=== PATIENT | male | born 1980 | race Caucasian/White ===

== ENCOUNTER 2023-07-30 16:12 | Emergency (ER) | payer OTHER ==
[2023-07-30 16:25] VITALS: BP 137/89; PULSE 77; RESP 18; TEMP 98.4; BMI 32.5
[2023-07-30] MEDS ORDERED: LIDOCAINE 5% TOPICAL PATCH TP ONE (16:30)
[2023-07-30] MEDS ORDERED: KETOROLAC TROMETHAMINE 30 MG/1 ML VIAL IM ONE (16:30)
[2023-07-30] MEDS ORDERED: LIDOCAINE 5% TOPICAL PATCH ONE (17:40)
[2023-07-30] MEDS ORDERED: KETOROLAC TROMETHAMINE 30 MG/1 ML VIAL ONE (17:40)
[2023-07-30] MEDS ORDERED: LIDOCAINE PATCH REMOVAL MC SCH (22:00)
== END 2023-07-30 18:34 | disposition home or self-care (01) ==
LOC: FER 16:12
PROC: 3E0233Z Introduction of Anti-inflammatory into Muscle, Percutaneous Approach (ICD-10-PCS; principal; 2023-07-30)
DX: S20.212A Contusion of left front wall of thorax, initial encounter (principal); X83.8XXA Intentional self-harm by other specified means, initial encounter; Y93.67 Activity, basketball
CPT/HCPCS: 71101-TC-LT-FY; 81003; 99284-25